=== PATIENT | male | born 1955 | race African-American/Black ===

== ENCOUNTER → 2019-10-31 | Outpatient (CLI) | payer BC ==
[2019-10-31 12:43] LABS: BASOPHILS % 0.8 % (0.0-2.0); EOSINOPHILS % 3.2 % (0.0-5.0); HEMATOCRIT. 41.6 % (42.0-52.0); HEMOGLOBIN. 13.7 g/dL (14.0-18.0); LYMPHOCYTES % 44.8 % (20.0-50.0); MEAN CORPUSCULAR HEMOGLOBIN 26.4 pg (28.0-32.0); MEAN PLATELET VOLUME 8.8 fl (7.4-10.4); MONOCYTES % 7.8 % (2.0-8.0); NEUTROPHILS % 43.4 % (40.0-76.0); PLATELET 182 x1000/uL (130-400); RED BLOOD CELL COUNT 5.21 mill/uL (4.7-6.1)
[2019-10-31 12:51] LABS: CHLORIDE 106 mEq/L (98-107)
[2019-10-31 13:00] LABS: LDL CHOLESTEROL 102 mg/dL (5-100)
[2019-10-31 13:05] LABS: HDL CHOLESTEROL 78 mg/dL (40-59)
== END | disposition home or self-care (01) ==
LOC: EEVIPCON 10:59 → LAB 10:59
DX: Z01.89 Encounter for other specified special examinations (principal); R51 Headache; Z85.49 Personal history of malignant neoplasm of other male genital organs
CPT/HCPCS: 36415; 80053; 80061; 82306; 84153; 84443; 85025; G0103